=== PATIENT | female | born 1950 | race Caucasian/White ===

== ENCOUNTER 2016-03-12 13:43 | Emergency (ER) | payer OTHER ==
[~2016-03-12] VITALS: Ht 157.5 cm; Wt 62.0 kg
--- NOTE | 2016-03-12 14:15 | ED EAR COMPLAINT ---
History of Present Illness General Chief Complaint: Ear Complaints Stated Complaint: RT EAR PAIN Source: family Exam Limitations: language barrier Vital Signs & Intake/Output Vital Signs & Intake/Output Vital Signs Date Time Temp Pulse Resp B/P Pulse O2 O2 Flow FiO2 Ox Delivery Rate 03/12 1350 97.7 76 18 111/73 Allergies Coded Allergies: No Known Allergies (03/12/16) Reconcile Medications Ciprofloxacin HCl/Dexameth (Ciprodex Otic Suspension) 0.3 %-0.1 % DROPS.SUSP 4 GTT OT BID OTITIS EXTERNA USE IN AFFECTED RIGHT EAR TAKE DIRECTED FOR TEN DAYS Ibuprofen 600 MG TABLET 1 TAB PO TID PRN PAIN with food Triage Note: COMPLAINS OF R EAR PAIN FOR ABOUT 2 WEEKS. PT IS HERE VISITING AND SHE HAS BEEN TREATED WITH 2 DIFFERENT ABT. ALSO COMPLAINS OF HEARING LOSS Triage Nurses Notes Reviewed? yes Onset: Abrupt Duration: constant Timing: recent history Severity: moderate Severity Numbers: 5 HPI: Patient is a 65-year-old female with an unremarkable past medical history who is from [facility] in which the daughter is translating who recently flew approximate 3 weeks ago and which after the flight she was not feeling well with sore throat nasal congestion and generalized weakness and fatigue patient states that she "blew her nose" and then had sudden right-sided ear pain and loss of hearing. Patient states that the hearing in the past 3 weeks has improved however the pain has remained persistent. Denies any ear discharge, denies any current fever, chills, headache sore throat nasal congestion neck pain neck stiffness cough is otherwise without complaints. Patient does state that she brought with her on the trip TWO antibiotics in which it was known that one was azithromycin and patient states that she feels no better from the ear pain with these medications. Patient is returning to [facility] and approximateLY 1 month. Past History Travel History Traveled to [facility] past 21 day No Medical History Any Pertinent Medical History? none Neurological: NONE EENT: NONE Cardiovascular: NONE Respiratory: NONE Gastrointestinal: NONE Hepatic: NONE Renal: NONE Musculoskeletal: NONE Psychiatric: NONE Endocrine: NONE Blood Disorders: NONE Cancer(s): NONE RF ENGINEER/Reproductive: NONE Surgical History Surgical History: non-contributory Psychosocial History What is your primary language [place] Tobacco Use: Never used ETOH Use: denies use Illicit Drug Use: denies illicit drug use Family History Hx Contributory? No Review of Systems Review of Systems Constitutional: Reports: no symptoms. EENTM: Reports: see HPI, ear pain. Denies: ear discharge, ear redness. Respiratory: Reports: no symptoms. Cardiovascular: Reports: no symptoms. GI: Reports: no symptoms. Genitourinary: Reports: no symptoms. Musculoskeletal: Reports: no symptoms. Skin: Reports: no symptoms. Neurological/Psychological: Reports: no symptoms. Hematologic/Endocrine: Reports: no symptoms. Immunologic/Allergic: Reports: no symptoms. All Other Systems: Reviewed and Negative Physical Exam Physical Exam General Appearance: no apparent distress, alert, comfortable Ears: Right: erythema, tenderness. Comments: Well-developed well-nourished person in no acute distress HEENT: , extraocular motion intact, no nystagmus. Pupils equally round and reactive to light and accommodation. Nose is atraumatic. . Pharynx normal. No swelling or edema. Right ear- external anatomy and tragus nontender, right external auditory canal erythematous and swollen, tympanic membrane intact normal inspection Left ear normal inspection external anatomy normal inspection of external auditory canal and tympanic membrane. Neck: Supple, no lymphadenopathy, normal range of motion without pain or tenderness Back: Nontender, no CVA tenderness. Cardiovascular: Regular rate and rhythms no murmurs rubs or gallops, normal JVP Respiratory: Chest nontender. No respiratory distress.breath sounds clear to auscultation bilaterally Abdomen: Soft, nontender nondistended, no appreciable organomegaly. Normal bowel sounds. No ascites Extremity: No edema, no calf tenderness to palpation, normal and equal pulses. Neuro: Alert oriented x3, motor sensory normal, Skin: No appreciable rash on exposed skin, skin is warm and dry. Psych: Mood and affect is normal, memory and judgment is normal. Progress Differential Diagnoses I considered the following diagnoses in my evaluation of the patient: [Otitis media, otitis externa, tympanic membrane rupture, mastoiditis, pharyngitis, sinusitis, meningitis] Plan of Care: Due to history of present illness and exam findings there was initially concerned of tympanic membrane rupture however the right tympanic membrane was inspected thoroughly showing no rupture signs. Patient did have moderate erythema and swelling to the external auditory canal the right side patient will be treated with Ciprodex and ibuprofen. Patient was strongly advised to return to emergency room in 2-3 days for follow-up in which patient is visiting [place]. On discharge patient looks well no apparent distress and will comply with discharge instructions and had no questions. Initial ED EKG: none Departure Departure Disposition: HOME OR SELF CARE Condition: Stable Clinical Impression Primary Impression: Otitis externa of right ear Referrals: PATIENT HAS NO PRIMARY CARE DR (PCP/Family) Additional Instructions: As discussed begin the prescription of Ciprodex as directed for the full course. Begin the prescription of ibuprofen for pain and inflammation. If no better in 2-3 days return to emergency room. If symptoms worsen or if YOU develope a new concerning symptom return to emergency room. Prescriptions are waiting at your pharmacy Departure Forms: Customer Survey General Discharge Information Prescriptions: Current Visit Scripts Ciprofloxacin HCl/Dexameth (Ciprodex Otic Suspension) 4 GTT OT BID #1 BOT USE IN AFFECTED RIGHT EAR TAKE DIRECTED FOR TEN DAYS Ibuprofen 1 TAB PO TID PRN PAIN #21 TAB with food
[2016-03-12] MEDS ORDERED: CIPRODEX OTIC7.5 ML OT (14:28)
[2016-03-12] MEDS ORDERED: IBUPROFEN600 M1 PO (14:28)
== END 2016-03-12 14:37 ==
LOC: ERH 13:43
DX: H60.91 Unspecified otitis externa, right ear (principal)